=== PATIENT | male | born 1965 | race Caucasian/White ===

== ENCOUNTER → 2018-09-18 14:26 | Outpatient (CLI) | payer BC, SELFPAY ==
--- NOTE | 2018-09-18 14:34 | RAD_ITS ---
STUDY: X-RAY - LUMBAR SPINE REASON FOR EXAM: Male, 53 years old. second bout of sciatica, now with right leg weakness and foot slapping TECHNIQUE: 5 view(s) of the lumbar spine were obtained. COMPARISON: None FINDINGS: Normal lumbar lordosis. There is multilevel endplate spondylosis of the lumbar vertebrae. There is multi-level degenerative disc disease with multi-level disc space narrowing. The soft tissue structures are unremarkable. RAD/L/S Spine Min 4 Views IMPRESSION: Degenerative changes of the spine. Electronically Signed: Marlena Sparrow MD at 9:36 EDT Tel , Service support ,
== END ==
PROVIDERS: Family Provider Family Medicine; PCP Family Medicine; Referring Provider Family Medicine; Visit Provider Family Medicine
DX: M51.16 Intervertebral disc disorders with radiculopathy, lumbar region (principal)
CPT/HCPCS: 72110

== ENCOUNTER 2021-02-16 13:00 | Outpatient (RCR) | payer OTHER, SELFPAY ==
[2013-09-21 19:56] VITALS: BMI 25.0
[2021-02-16] MEDS: COVID-19 VACC, MRNA(PFIZER)/PF 30 MCG/0.3 ML SYRINGE IM (07:20)
[2021-03-09] MEDS: COVID-19 VACC, MRNA(PFIZER)/PF 30 MCG/0.3 ML SYRINGE IM (07:00)
== END 2021-02-16 23:59 ==
LOC: IMMUN 13:00
PROVIDERS: PCP Family Medicine; Visit Provider Family Medicine
DX: Z23 Encounter for immunization (principal)
CPT/HCPCS: 0001A; 0002A; 91300